=== PATIENT | male | born 1985 | race Caucasian/White ===

== ENCOUNTER 2017-02-11 21:18 | Emergency (ER) | payer SELFPAY ==
--- NOTE | 2017-02-11 22:43 | ERNOTE ---
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 HIS COWORKERS GAVE HIM JUICE AND GLUCOSE TABLET AND CALLED EMS. THEY ALSO GAVE HIM ASA AND EMS GAVE ONE NTG S.L. WHICH PT SAID DECREASED THE PAIN FROM 7/10 - 4/10. STATES HE IS PAIN FREE NOW. HE HAS NO HX OF CAD BUT WAS TREATED FOR HTN FOR A WHILE BUT HAS NOT TAKEN MEDS FOR ~2 YEARS. HE DOES HAVE REFLUX "KGERD " SYMPTOMS AND OCC TAKES ZANTAC. Review of Systems - Review of Systems Constitutional: Present: See HPI EYE: Present: no symptoms reported ENT: Present: no symptoms reported Respiratory: Present: no symptoms reported Cardiology: Present: See HPI, chest pain Gastrointestinal/Abdominal: Present: See HPI, nausea Genitourinary: Present: no symptoms reported Musculoskeletal: Present: no symptoms reported Skin: Present: no symptoms reported Neurological: Present: See HPI, dizziness/light-headedness Endocrine: Present: no symptoms reported Hematologic/Lymphatic: Present: no symptoms reported Psych: Present: no symptoms reported All Other Systems: All systems neg except as marked - Patient's Past Medical History Patient History - Medical: Depression, GERD Patient History - Cardiac/Respiratory: Bronchitis, Hypertension, Pneumonia Patient History - Cancer: No Hx of Cancer Patient History - Surgical Procedures: Other Patient History - Other: None - Social History Living Situations: home Psych History: Hx of Depression Smoking Status: Never smoker Have you smoked in the past 12 months: Yes Alcohol Use: none Drug Use: none - Immunizations Immunizations Up to Date: Yes Hx Pneumococcal Vaccination: No History of Influenza Vaccine: Yes Physical Exam - Physical Exam General Appearance: Present: wd/wn, alert, no apparent distress Respiratory: Present: no respiratory distress, normal breath sounds, no accessory muscle use, chest nontender, lungs clear Cardiovascular/Chest: Present: regular rate, rhythm, no murmur, normal peripheral pulses Peripheral Pulses: N=norm/S=strong/W=weak/B=bound/A=absent: Radial (R): Normal, Radial (L): Normal, Dorsalis-pedis (R): Normal, Dorsalis-pedis (L): Normal Gastrointestinal/Abdominal: Present: normal bowel sounds, nondistended, soft, no organomegaly, tenderness - MILD EPIGASTRIC TENDERNESS TO PALP. . Absent: guarding, rebound Back Exam: Present: normal inspection Extremity Exam: Present: normal inspection, no edema Neurological Exam: Present: alert, oriented Skin Exam: Present: normal color, warm/dry ED Progress - Results and Orders Patient's Lab Results:: I have reviewed the patient's lab results. Results and Orders: SL ELEVATED WBC = 11.8, #1 TROP= NEGATIVE. REPEAT TROPONIN AT 0200 IS ALSO NEGATIVE. - Vital Signs Vital Signs: Vital Signs 02/11/17 02/11/17 02/11/17 21:20 21:35 21:36 Temperature 36.9 C Pulse Rate 97 93 94 Respiratory 20 Rate Blood Pressure 112/72 O2 Sat by Pulse 97 Oximetry 02/11/17 02/11/17 22:05 22:35 Temperature Pulse Rate 89 83 Respiratory 16 16 Rate Blood Pressure 133/75 127/71 O2 Sat by Pulse 96 96 Oximetry - EKG EKG: NSR, unchanged from - 09/26/2014 - Progress/Reassessment Chief Complaint: Chest Pain Progress:: Improved - Transfer of Care Expected Disposition: Discharge Departure - Departure Clinical Impression: Chest pain in adult Heat stress syndrome Qualifiers: Encounter type: initial encounter Qualified Code(s): T67.8XXA - Other effects of heat and light, initial encounter Disposition: Home Follow Up Needed Condition: Good Instructions: Heat Exhaustion Information, Chest Pain Observation Additional Instructions: REST WEDNESDAY, NO WORK , STAY IN COOL ENVIRONMENT. DRINK EXTRA FLUIDS. LIGHT DIET. IF FEELING WELL AFTER A DAYS REST YOU MAY RETURN TO WORK. IN THE FUTURE BE SURE TO STOP , COOL DOWN AND HYDRATE BEFORE YOU ARE FEELING SO POORLY. YOU SHOULD FOLLOW UP WITH YOUR FAMILY DOCTOR IN [facility], TO SEE IF THEY WANT TO DO MORE EXTENSIVE EVALUATION OF THE CHEST DISCOMFORT. LET THEM KNOW YOU WERE SEEN HERE.
[2017-02-11 22:44] LABS: Hematocrit 45.2 % (42.0-52.0); Hemoglobin 15.4 gm/dL (13.5-18.0); Mean Cell Volume 81.6 fl (78-100); Mean Corpuscular Hemoglobin 27.8 pg (27-31); Mean Corpuscular Hgb Conc 34.1 g/dl (32-36); Mean Platelet Volume 8.7 fl (6.0-9.5); Neutrophil % 67.7 % (42-75.0); Platelet Count 227 K/mm3 (150-450); Red Blood Count 5.54 M/mm3 (4.7-6.0); Red Cell Distribution Width 12.6 % (11.5-14.0); White Blood Count 11.8 K/mm3 (4.0-10.5)
[2017-02-11 22:58] LABS: INR 1.06 INR (0.90-1.10)
[2017-02-11 23:08] LABS: ALT 46 U/L (19-67); AST 22 U/L (0-48); Alkaline Phosphatase * 56 U/L (50-170); Anion Gap 10.1 mmol/L (6.8-13.8); BUN/Creatinine Ratio 10.7 (9.0-21.6); Bilirubin, Total 0.5 mg/dL (0.0-1.1); Blood Urea Nitrogen 13 mg/dL (6-23); Ca. Corrected For Albumin 8.9 mg/dL (8.4-10.2); Calcium * 9.2 mg/dL (7.9-10.9); Carbon Dioxide 30.7 mmol/L (24-32.6); Chloride 108 mmol/L (97-106); Glucose * 87 mg/dL (70-110); Potassium 3.8 mmol/L (3.4-4.6); Sodium 145 mmol/L (132-142); Total Protein 7.1 gm/dL (6.2-8.2); Troponin I Less than 0.017 ng/ml (0.00-0.10)
--- OUTSIDE RECORDS SUMMARY | 2017-02-11 23:34 | XMS REPORT | CCD ---
:1985 Author Name ARACELY INGRAM Address [address] Unavailable [place], [place] [id number] Care Team Providers Name Role Phone LAYA GRACE Attending Physician Unavailable Vital Signs Unknown or Not Available. Allergies Allergy Code Allergy Type Reaction Status No Known Allergies 0 No known allergies Active Procedures Procedure Code Procedure Type Date C SPINE [id number] 03/25/2016 MRI-C/SPINE W/O [id number] SNOMED CT 03/25/2016 History of Immunizations Unknown or Not Available. Problems Unknown or Not Available. Results Unknown or Not Available. Active Medications Unknown or Not Available. Medications Administered During Visit Unknown or Not Available. Encounters Encounter Diagnosis Diagnosis Code Start Date Cervicalgia M542 03/25/2016 Social History Smoking Status Code Start Date End Date Unknown if ever smoked [id number] Patient Decision Aids Unknown or Not Available. Discharge Instructions You were admitted to [facility] on 03/25/2016 08:55 with a principal diagnosis of Cervicalgia You were discharged from [facility] on 03/25/2016 08:56 Should you have any questions prior to discharge, please contact a member of your healthcare team. If you have left the hospital and have any questions, please contact your primary care physician. Chief Complaint and Reason For Visit Unknown or Not Available. Function Status Unknown or Not Available. Plan of Care Unknown or Not Available. Referral/Transition of Care Unknown or Not Available.
--- OUTSIDE RECORDS SUMMARY | 2017-02-11 23:34 | XMS REPORT | Continuity of Care Document ---
:1985 Author Organization [facility] ([facility]) Address [address] [place] [address] Phone [phone] Care Team Providers Name Role Phone Devan Rios Primary Care Provider [phone] Source Comments This disclosure is being made pursuant to the Care Everywhere program, applicable federal and state laws, and may not contain all informaitonavailable regarding this patient.[facility] ([facility]) Active Allergies and Adverse Reactions No Known Allergies Current Medications Prescription Sig. Disp. Refills Start Date End Date Status albuterol 90 Use 2 Puffs by 1 Inhaler 6 05/31/2012 Active mcg/Actuation inhalation every 6 inhaler hours as needed. Indications: BRONCHOSPASM PREVENTION omeprazole 20 mg Take 1 Cap by mouth 120 Cap 6 05/31/2012 Active extended release daily. Indications: capsule GASTROESOPHAGEAL REFLUX buPROPion (ZYBAN) Take 1 Tab by mouth 2 84 Tab 0 05/31/2012 Active 150 mg SR tablet times daily. Take for 1 week before stopping tobacco use. Indications: NICOTINE DEPENDENCE HYDROcodone-acetam Take 1 Tab by mouth Active inophen 5-325 mg every 4 hours as per tablet needed. acetaminophen-code Take 1 Tab by mouth Active ine 300-30 mg per every 6 hours as tablet needed. Active Problems Problem Noted Date GERD (gastroesophageal reflux disease) 05/31/2012 Asthma 05/31/2012 HEIDI (obstructive sleep apnea) 05/31/2012 Obesity 05/31/2012 Nicotine addiction 05/31/2012 Social History Tobacco Use Types Packs/Day Years Used Date Current Every Day Smoker Cigarettes 1 16 Smokeless Tobacco: Current User Quit: 09/23/2011 Tobacco Cessation:Ready to Quit: No; Counseling Given: Yes Comments:started at age 11. chewed 2 cans a day x 16 yrs Alcohol Use Drinks/Week oz/Week Comments No Last Filed Vital Signs Vital Sign Reading Time Taken Blood Pressure 158/93 05/24/2014 8:15 PM CDT Pulse 92 05/24/2014 8:15 PM CDT Temperature 36.4 C (97.5 F) 05/24/2014 5:10 PM CDT Respiratory Rate 18 05/24/2014 8:15 PM CDT Height 1.797 m (5' 10.75") 05/31/2012 2:39 PM CDT Weight 124.785 kg (275 lb 1.6 oz) 05/31/2012 2:39 PM CDT Body Mass Index 38.64 05/31/2012 2:39 PM CDT Oxygen Saturation 97% 05/24/2014 8:15 PM CDT Plan of Care Patient Goal Type Goal Weight Weight below 120 kg (265 lb) Lifestyle interested in wishes Quit smoking / using tobacco Health Maintenance Due Date Last Done Comments Hepatitis B Vaccine (1 of 3 - Primary Series) 1985 Tdap Vaccine 1994 Lipid Disorder Screening 2001 MMR Vaccine 2001 Td Vaccine 2001 Varicella Vaccine (1 of 2 - Adult - No Evidence of 2001 Immunity) Pneumococcal Vaccine (1 of 1 - PPSV23) 2002 Influenza Vaccine: Seasonal (#1) 04/13/2016 Results from Last 3 Months Not on file
[2017-02-12 03:24] VITALS: BP 121/60
== END 2017-02-12 03:22 | disposition home or self-care (01) ==
LOC: ER 21:18
DX: T67.8XXA Other effects of heat and light, initial encounter (principal); R07.9 Chest pain, unspecified; K21.9 Gastro-esophageal reflux disease without esophagitis